=== PATIENT | female | born 1945 | race Caucasian/White ===

== ENCOUNTER 2018-10-22 12:13 | Emergency (ER) | payer MEDICARE, OTHER ==
[~2018-10-22] VITALS: Ht 165.1 cm; Wt 83.3 kg
[2018-10-22 12:18] VITALS: BP 166/85; Ht 165.1 cm; Wt 83.3 kg
[2018-10-22] MEDS ORDERED: LOVASTATIN20 MG PO (12:20)
[2018-10-22] MEDS ORDERED: COZAAR100 MG PO (12:20)
[2018-10-22] MEDS ORDERED: HYDROCHLOROTHIA25 MG PO (12:20)
[2018-10-22] MEDS ORDERED: ULTRAM50 MG PO (12:21)
[2018-10-22] MEDS ORDERED: SOMA350 MG PO (12:22)
[2018-10-22] MEDS ORDERED: HALCION0.25 MG PO (12:22)
[2018-10-22] MEDS ORDERED: TAMIFLU75 MG (12:22)
[2018-10-22] MEDS ORDERED: K-DUR20 MEQ PO (12:22)
[2018-10-22] MEDS ORDERED: KEFLEX250 MG PO (12:23)
[2018-10-22] MEDS ORDERED: TESSALON PERLE100 MG PO (12:23)
[2018-10-22 12:58] LABS: BASOPHILS 0.2 % (0-2); EOSINOPHILS 0.7 % (0-7); HEMATOCRIT 38.3 % (36.0-48.0); HEMOGLOBIN 13.2 g/dL (12-16); IMMATURE GRANULOCYTES 0.2 % (0-5); LYMPHOCYTES 44.2 % (15-50); MCH 29.7 pg (26.0-34.0); MCHC 34.5 g/dL (31.0-37.0); MCV 86.1 fL (80.0-100.0); MEAN PLATELET VOLUME 9.6 fL (7.4-10.4); MONOCYTES 9.6 % (2-11); NEUTROPHILS 45.1 % (40-80); PLATELET COUNT 160 10x3/uL (130-400); RBC 4.45 10x6/uL (4.00-5.40); RDW 12.6 % (11.5-14.5); WBC 5.9 10x3/uL (4.8-10.8)
[2018-10-22 13:10] LABS: APTT 27.7 SECONDS (22.8-39.4); INR 1.05 (0.85-1.17); PROTIME 13.2 SECONDS (11.6-15.0)
[2018-10-22 13:11] LABS: ALBUMIN 3.6 g/dL (3.4-5.0); ALKALINE PHOSPHATASE 56 U/L (46-116); ALT (SGPT) 19 U/L (10-68); CALC OSMOLALITY 293 mosm/kg (275-300); CALCIUM 8.6 mg/dL (8.5-10.1); CARBON DIOXIDE 25.7 mmol/L (21.0-32.0); CHLORIDE - SERUM 108 mmol/L (98-107); CREATININE - SERUM 0.7 mg/dL (0.6-1.3); GLUCOSE 104 mg/dL (74-106); POTASSIUM - SERUM 3.4 mmol/L (3.5-5.1); PROTEIN - SERUM 7.1 g/dL (6.4-8.2); SODIUM 146 mmol/L (136-145); UREA NITROGEN 21 mg/dL (7-18); eGFR NON AFRICAN AMERICAN 87 mL/min (90-120)
[2018-10-22 13:22] LABS: CREATINE KINASE 49 UL (21-215); MAGNESIUM - SERUM 1.6 mg/dL (1.8-2.4); TROPONIN-I < 0.017 ng/mL (0.000-0.060)
== END 2018-10-22 15:54 | disposition home or self-care (01) ==
LOC: D.ER 12:13
PROVIDERS: Family Medicine
DX: G45.9 Transient cerebral ischemic attack, unspecified (principal); R53.1 Weakness